=== PATIENT | female | born 1955 | race Two or more races ===

== ENCOUNTER 2022-03-13 15:47 | Emergency (ER) | payer OTHER ==
[~2022-03-13] VITALS: Ht 157.5 cm; Wt 80.7 kg
[2022-03-13] MEDS ORDERED: RAYOS5 MG (16:16)
[2022-03-13] MEDS ORDERED: DICYCLOMINE 10 MG (16:16)
[2022-03-13] MEDS ORDERED: METFORMIN HCL1000 M2 (16:17)
[2022-03-13] MEDS ORDERED: EC-NAPROSYN500 MG (16:17)
[2022-03-13] MEDS ORDERED: COZAAR100 MG (16:18)
[2022-03-13] MEDS ORDERED: GABAPENTIN 400 MG (16:18)
[2022-03-13] MEDS ORDERED: ATORVASTATIN CA80 MG (16:20)
[2022-03-13] MEDS ORDERED: [UNRECOGNIZED DRUG - OTHER] (16:20)
[2022-03-13] MEDS ORDERED: MONTELUKAST 10 MG (16:21)
[2022-03-13] MEDS ORDERED: ZEGERID 40 MG1 EACH (16:21)
[2022-03-13] MEDS ORDERED: AMLODIPINE 5 MG. (16:22)
[2022-03-13] MEDS ORDERED: ATENOLOL50 MG (16:23)
== END 2022-03-13 18:52 | disposition home or self-care (01) ==
LOC: ER 15:47
DX: B34.9 Viral infection, unspecified (principal); I10 Essential (primary) hypertension; E78.00 Pure hypercholesterolemia, unspecified; E11.9 Type 2 diabetes mellitus without complications; Z79.84 Long term (current) use of oral hypoglycemic drugs